=== PATIENT | female | born 1945 | race Caucasian/White ===

== ENCOUNTER 2025-08-08 02:04 | Emergency (ER) | payer OTHER ==
[~2025-08-08] VITALS: Ht 162.6 cm; Wt 60.4 kg
[2025-08-08 02:31] LABS: PLATELET COUNT (AUTO) 139 K/uL (179-408); RED BLOOD CELL COUNT(AUTO) 4.14 MIL/uL (3.63-4.92); RED CELL DISTRIBUTION WIDTH 15.5 % (12.3-17.7); WHITE BLOOD COUNT (AUTO) 6.4 K/uL (3.8-11.8)
[2025-08-08] MEDS ORDERED: PIPERACILLIN SODIUM/TAZO 3.375 GM VIAL ONE (02:32)
[2025-08-08] MEDS ORDERED: ACETAMINOPHEN 325 MG TABLET ONE (02:32)
[2025-08-08] MEDS: IV NORMAL SALINE 1000 ML BAG IV ONE (02:37)
[2025-08-08 02:39] LABS: CREATININE 1.0 mg/dL (0.6-1.3); SODIUM SERUM 138 mmol/L (136-145); UREA NITROGEN, BLOOD 19 mg/dL (7-18)
[2025-08-08] MEDS ORDERED: bactrim PO (02:42)
[2025-08-08] MEDS ORDERED: PROP20TA7 PO (02:42)
[2025-08-08] MEDS ORDERED: APIX2.5T PO (02:42)
[2025-08-08] MEDS ORDERED: DEXA4TAB PO (02:42)
[2025-08-08] MEDS ORDERED: LEVO50TA8 PO (02:42)
[2025-08-08] MEDS ORDERED: AMLO-212 PO (02:42)
[2025-08-08] MEDS ORDERED: [UNRECOGNIZED DRUG - CODE] PO (02:42)
[2025-08-08] MEDS ORDERED: CHLO5CAP3 PO (02:42)
[2025-08-08] MEDS ORDERED: LISI20TA30 PO (02:42)
[2025-08-08 02:45] LABS: ASPARTATE AMINOTRANSFERASE 17 U/L (15-37); TOTAL PROTEIN, SERUM 6.5 g/dL (6.4-8.2)
[2025-08-08] MEDS ORDERED: ACETAMINOPHEN 500 MG TABLET ONE (02:47)
[2025-08-08] MEDS: ACETAMINOPHEN 500 MG TABLET PO ONE (02:48)
[2025-08-08] MEDS: PIPERACILLIN SODIUM/TAZOBACTAM 3.375 G in IV DEXTROSE 5% 50 ML IV ONE (02:56)
[2025-08-08 03:28] LABS: *BILIRUBIN,URIN NEGATIVE (NEGATIVE); *BLOOD, URINE 2+ (NEGATIVE); *CLARITY,URINE SLIGHTLY CLOUDY (CLEAR); *COLOR,URINE LIGHT YELLOW (YELLOW); *KETONES,URINE NEGATIVE (NEGATIVE); *PROTEIN,URINE 1+ (NEGATIVE); *UROBILINOGEN,URINE 0.2 E.U./dl (NORMAL); LEUKOCYTE ESTERASE ,URINE TRACE (NEGATIVE); NITRITE, URINE POSITIVE (NEGATIVE); UGLUCOSE NEGATIVE (NEGATIVE)
[2025-08-08 03:43] LABS: SQUAMOUS EPITHELIAL CELL,UR FEW /HPF (NONE SEEN)
[2025-08-08 03:53] VITALS: BP 100/49
[2025-08-08] MEDS ORDERED: ACET-2605 PO (04:59)
[2025-08-08] MEDS ORDERED: AMOX-319 PO (04:59)
[2025-08-08 05:16] VITALS: BP 98/58; TEMP 98.3; O2SAT 98
== END 2025-08-08 05:30 | disposition home or self-care (01) ==
LOC: ER 02:13
DX: R65.10 Systemic inflammatory response syndrome (SIRS) of non-infectious origin without acute organ dysfunction (principal); R50.9 Fever, unspecified; R00.2 Palpitations; C90.00 Multiple myeloma not having achieved remission; I11.9 Hypertensive heart disease without heart failure; E03.9 Hypothyroidism, unspecified; N39.0 Urinary tract infection, site not specified; Z79.01 Long term (current) use of anticoagulants; Z79.61 Long term (current) use of immunomodulator; Z79.890 Hormone replacement therapy; Z79.899 Other long term (current) drug therapy; Z86.711 Personal history of pulmonary embolism; Z86.718 Personal history of other venous thrombosis and embolism
CPT/HCPCS: 36415; 71045; 83605; 85025; 85730; 87040; 87077; 87086; A4606; A4663; A9150; J2543; J7040